=== PATIENT | male | born 1995 | race Caucasian/White ===

== ENCOUNTER 2019-07-01 23:02 | Emergency (ER) | payer BC ==
[~2019-07-01] VITALS: Ht 175.3 cm; Wt 59.0 kg
[2019-07-01 23:15] VITALS: BP 108/60
--- NOTE | 2019-07-01 23:18 | NUR ---
ED Nurse Note: PT AMBULATED TO ED C/O LEFT EYE ABCESS. PT PRESENTS WITH CLEAR DISCHARGE. ACCOMPANIED BY SIGNIFICANT OTHER. AO4. NAD. VSS. VISUAL ACUITY BILATERA; 20/70; LEFT EYE 20/100; RIGHT EYE 20/70
[2019-07-01] MEDS ORDERED: TOBRADEX EYE O3.5 G1 OP (23:20)
--- NOTE | 2019-07-01 23:21 | Emergency Room Report ---
History of Present Illness General Chief Complaint: Eye Problems Source: Patient Present Illness HPI 23-year-old male with no past medical history. He presents with chief complaint of eye redness. Onset for 4 to 5 days now. Started on the right eye with a stye. That drained. He has another one in the left eye. He is been trying homeopathic medication is not helping. More irritated and swollen now. No fever chills but no nausea no vomiting. Denies any other complaint. No visual loss. Allergies: Coded Allergies: No Known Allergies (Unverified , 07/01/19) Patient History Past Medical History: see triage record, old chart reviewed Past Surgical History: none Pertinent Family History: none Social History: Denies: smoking Immunizations: UTD Reviewed Nursing Documentation: PMH: Agreed; PSxH: Agreed Nursing Documentation-PMH Hx Cardiac Problems: Yes - murmur Hx Seizures: Yes - 2016 Review of Systems Eye: Denies: eye pain, blurred vision ENT: Denies: ear pain, nose congestion, throat swelling Respiratory: Denies: cough, shortness of breath Cardiovascular: Denies: chest pain, palpitations Gastrointestinal: Denies: abdominal pain, diarrhea, nausea, vomiting Musculoskeletal: Denies: back pain, joint pain Skin: Denies: rash Neurological: Denies: headache, numbness Endocrine: Denies: increased thirst, increased urine Hematologic/Lymphatic: Denies: easy bruising All Other Systems: negative except mentioned in HPI Physical Exam Vital Signs Date Time Temp Pulse Resp B/P (MAP) Pulse Ox O2 Delivery O2 Flow Rate FiO2 07/01/19 23:05 97.9 67 16 108/60 (76) 94 Room Air Vitals normal Sp02 EP Interpretation: reviewed, normal General Appearance: well appearing, no apparent distress, alert Head: normocephalic, atraumatic Eyes: right eye other - Lower lid medially with a small stye that this already drained. Left lower lid in the middle with edema and redness.; bilateral eye PERRL, bilateral eye EOMI ENT: hearing grossly normal, normal pharynx Neck: full range of motion, supple, no meningismus Respiratory: chest non-tender, lungs clear, normal breath sounds Cardiovascular #1: regular rate, rhythm, no murmur Gastrointestinal: normal bowel sounds, non tender, no mass, no organomegaly, no bruit, non-distended Musculoskeletal: back normal, gait/station normal, normal range of motion Psychiatric: mood/affect normal Medical Decision Making Diagnostic Impression: Primary Impression: Sty Qualified Codes: H00.015 - Hordeolum externum left lower eyelid ER Course Patient presented with a stye. No evidence of hanane-orbital cellulitis or orbital cellulitis. Will discharge home. Last Vital Signs Date Time Temp Pulse Resp B/P (MAP) Pulse Ox O2 Delivery O2 Flow Rate FiO2 07/01/19 23:05 97.9 67 16 108/60 (76) 94 Room Air Status: unchanged Disposition: HOME, SELF-CARE Condition: Stable Scripts Tobramycin/Dexamethasone (TOBRADEX EYE OINTMENT) 3.5 Gm Oint...g. 3.5 GM OP BID, #3.5 GM Prov: Rm Catalan MD 07/01/19 Additional Instructions: Clean eyelid with mild soap and water. Apply warm compress. Use antibiotic ointment afterward. Follow-up with your doctor in 7 days for recheck. You may need referral to see an eye doctor. Return if symptoms worsen. Rm Catalan MD Jul 01, 2019 23:21
[2019-07-01 23:25] VITALS: BP 108/60
--- NOTE | 2019-07-01 23:26 | NUR ---
ER DISCHARGE NOTE: Patient is cleared to be discharged per ERMD, pt is aox4, on room air, with stable vital signs. accompanied by significant other. pt was given dc and prescription instructions, pt was able to verbalize understanding, pt id band removed. pt is able to ambulate with steady gait. pt took all belongings.
== END 2019-07-01 23:25 | disposition home or self-care (01) ==
LOC: EMR 23:15
DX: H00.015 Hordeolum externum left lower eyelid (principal); R01.1 Cardiac murmur, unspecified
CPT/HCPCS: 99282

== ENCOUNTER 2019-08-18 11:14 | Emergency (ER) | payer BC ==
[~2019-08-18] VITALS: Ht 180.3 cm; Wt 58.5 kg
[~2019-08-18 11:14] MED LIST: TOBRADEX EYE O3.5 G1 OP
[2019-08-18] MEDS ORDERED: NKM (11:23)
[2019-08-18 11:24] VITALS: BP 110/65
--- NOTE | 2019-08-18 12:01 | Emergency Room Report ---
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 Denies trauma to the eye, blurry vision, photophobia, fever and chills, URI symptoms. Has not taken medication for symptoms. Periorbital cellulitis noted in the right eye and left eye has some reminiscent of previous stye Allergies: Coded Allergies: No Known Allergies (Unverified , 07/01/19) Patient History Past Medical History: see triage record Past Surgical History: unable to obtain Pertinent Family History: none Immunizations: UTD Reviewed Nursing Documentation: PMH: Agreed; PSxH: Agreed Nursing Documentation-PM Past Medical History: No History, Except For Hx Cardiac Problems: No - h/o seizure Hx Seizures: Yes - 2015 Review of Systems All Other Systems: negative except mentioned in HPI Physical Exam Vital Signs Date Time Temp Pulse Resp B/P (MAP) Pulse Ox O2 Delivery O2 Flow Rate FiO2 08/18/19 11:19 98.1 67 19 106/55 (72) 96 Room Air Sp02 EP Interpretation: reviewed, normal General Appearance: no apparent distress, alert, GCS 15, non-toxic Head: normocephalic, atraumatic Eyes: right eye other - periorbital cellulitis, chalazion, conjunctiva injected ; bilateral eye normal inspection, bilateral eye PERRL ENT: hearing grossly normal, normal pharynx, no angioedema, normal voice, TMs + canals normal Neck: full range of motion, supple, thyroid normal, no carotid bruits, supple/ symm/no masses Respiratory: chest non-tender, lungs clear, normal breath sounds, no rhonchi, no respiratory distress, no wheezing, speaking full sentences Cardiovascular #1: regular rate, rhythm, no edema, systolic murmur - due to VSD Gastrointestinal: normal bowel sounds, non tender, soft, non-distended, no guarding, no rebound Genitourinary: no CVA tenderness Musculoskeletal: back normal, normal range of motion, gait/station normal, non- tender Neurologic: alert, motor strength/tone normal, oriented x3, sensory intact, responsive, speech normal Psychiatric: normal inspection, judgement/insight normal Skin: no rash Lymphatic: no adenopathy Medical Decision Making PA Attestation All my diagnosis and treatment plans were reviewed ad discussed with my supervising physician Dr. Martinez Diagnostic Impression: Primary Impression: Periorbital cellulitis Additional Impression: Bacterial conjunctivitis ER Course 23-year-old male with history of VSD currently controlled by road passenger firer here complaining of 1 week of bilateral eye pruritus, and pain and now 2 days of right eye swelling periorbital with pain and yellow discharge. 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 Denies trauma to the eye, blurry vision, photophobia, fever and chills, URI symptoms. Has not taken medication for symptoms. Periorbital cellulitis noted in the right eye and left eye has some reminiscent of previous stye Ddx considered but are not limited to: bacterial conjunctivitis, allergic conjunctivitis, viral conjunctivitis, periorbital cellulitis, global trauma Vital signs: are WNL, pt. is afebrile H&PE are most consistent with: Right periorbital cellulitis, bacterial conjunctivitis ORDERS: Augmentin, ofloxacin ophthalmic ED INTERVENTIONS: None required at this time. DISCHARGE: At this time pt. is stable for d/c to home. Will provide printed patient care instructions, and any necessary prescriptions. Care plan and follow up instructions have been discussed with the patient prior to discharge. Patient to follow-up with her primary care provider and road passenger firer regarding VSD management also referral to graining machine operator may be needed if symptoms continue to be persistent. If worsening symptoms return to the emergency room Last Vital Signs Date Time Temp Pulse Resp B/P (MAP) Pulse Ox O2 Delivery O2 Flow Rate FiO2 08/18/19 11:24 98.1 85 17 110/65 98 Room Air Disposition: HOME, SELF-CARE Condition: Stable Scripts Ofloxacin (Ofloxacin) 5 Ml Drops 2 DROP OP Q4H for 7 Days, #5 ML Prov: Alisha Ruiz 08/18/19 Amoxicillin/Potassium Clav 875-125* (AUGMENTIN 875-125 TABLET*) 1 Each Tablet 1 TAB ORAL TWICE A DAY for 10 Days, #20 TAB Prov: Alisha Ruiz 11/24/19 Referrals: NOT CHOSEN IPA/,REFERRING (PCP) Patient Instructions: Bacterial Conjunctivitis, [id number], Preseptal Cellulitis, Adult Additional Instructions: Take medication as follows her primary care provider, also follow-up with your road passenger firer if worsening symptoms return to the emergency room Alisha Ruiz Aug 18, 2019 12:01
[2019-08-18] MEDS ORDERED: AUGMENTIN 875-1 EAC1 ORAL (12:02)
[2019-08-18] MEDS ORDERED: OFLOXACIN10 ML OP (12:02)
[2019-08-18 12:08] VITALS: BP 112/72
== END 2019-08-18 12:08 | disposition home or self-care (01) ==
LOC: EMR 11:52
DX: L03.213 Periorbital cellulitis (principal); H10.9 Unspecified conjunctivitis; G40.909 Epilepsy, unspecified, not intractable, without status epilepticus
CPT/HCPCS: 99282

== ENCOUNTER 2020-03-28 02:23 | Emergency (ER) | payer BC, MEDICAID ==
[~2020-03-28] VITALS: Ht 180.3 cm; Wt 59.0 kg
[~2020-03-28 02:23] MED LIST changes: +AUGMENTIN 875-1 EAC1 ORAL; +NKM; +OFLOXACIN10 ML OP
[2020-03-28 02:31] VITALS: BP 117/66
--- NOTE | 2020-03-28 02:31 | NUR ---
ED Nurse Note: Patient walked in to ED from home c/o laceration on left thumb x 1hr ago. Per pt, he was cleaning his gf's scissors and accidentally cut his thumb. Bleeding is controlled. VSS. SULLIVAN at bedside.
--- NOTE | 2020-03-28 03:00 | Emergency Room Report ---
History of Present Illness General Chief Complaint: Upper Extremity Injury Source: Patient Present Illness HPI Patient presents with a cut to his left thumb. He was sharpening his girlfriend scissors when his stomach came across the sharp edge of the scissors. She had a difficult time controlling the bleeding but with pressure seems to have stopped. He denies any numbness. His tetanus is more recent than 10 years. He rates the pain 4/10 and sharp. L handed Patient denies medical problems. 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 Moved from [place] 3 years ago Reviewed Nursing Documentation: PMH: Agreed; PSxH: Agreed Nursing Documentation-PMH Hx Cardiac Problems: No Hx Seizures: Yes - 2015 Review of Systems Constitutional: Denies: fever ENT: Denies: throat pain Respiratory: Denies: cough Musculoskeletal: Reports: see HPI Skin: Reports: see HPI Neurological: Reports: see HPI Hematologic/Lymphatic: Reports: see HPI Physical Exam Vital Signs Date Time Temp Pulse Resp B/P (MAP) Pulse Ox O2 Delivery O2 Flow Rate FiO2 03/28/20 02:26 97.9 59 19 117/66 (83) 98 Room Air Sp02 EP Interpretation: reviewed, normal General Appearance: well appearing, no apparent distress, GCS 15 Head: normocephalic Eyes: bilateral eye normal inspection, bilateral eye PERRL ENT: moist mucus membranes Cardiovascular #1: regular rate, rhythm Gastrointestinal: normal inspection Musculoskeletal: gait/station normal Neurologic: alert, distal neuro normal, grossly normal Psychiatric: mood/affect normal Skin: other - Superficial laceration tip of left thumb Procedures Laceration/Wound Repair Laceration/Wound Repair : Consent: Verbal Wound Location: upper extremity Wound's Depth, Shape: superficial, linear Wound Length (cm): 1 Wound Explored: clean Irrigated w/ Saline (ccs): 20 Betadine Prep?: Yes Wound Debrided: None Wound Repaired With: Dermabond Sterile Dressing Applied?: Yes Patient Tolerated: Well Complications: None Medical Decision Making Diagnostic Impression: Primary Impression: Laceration of left thumb Qualified Codes: S61.012A - Laceration without foreign body of left thumb without damage to nail, initial encounter ER Course Patient presents with a superficial laceration to the tip of his left thumb. To control bleeding and to assist in laceration repair either sutures or Dermabond are indicated. Patient's vaccinations are up-to-date. After discussion we elected to use Dermabond. Please see procedure note. Patient tolerated laceration repair well. Treatment plan was discussed with the patient. Stable for outpatient observation and treatment. Last Vital Signs Date Time Temp Pulse Resp B/P (MAP) Pulse Ox O2 Delivery O2 Flow Rate FiO2 03/28/20 03:05 97.9 59 19 117/66 98 Room Air Status: improved Disposition: HOME, SELF-CARE Condition: Improved Ludwin Agrawal MD Mar 28, 2020 03:00
[2020-03-28 03:05] VITALS: BP 117/66
--- NOTE | 2020-03-28 03:05 | NUR ---
ED Nurse Note: Pt cleared by ERMD for discharge. DC instructions was given and explained to pt and verbalized understanding of teachings. All medical deviecs such as ID band removed. Pt is AAO x4, ambulatory and left with all personal belongings.
== END 2020-03-28 03:05 | disposition home or self-care (01) ==
LOC: EMR 02:40
DX: S61.012A Laceration without foreign body of left thumb without damage to nail, initial encounter (principal); W26.9XXA Contact with unspecified sharp object(s), initial encounter; Y92.9 Unspecified place or not applicable; F17.200 Nicotine dependence, unspecified, uncomplicated; G40.909 Epilepsy, unspecified, not intractable, without status epilepticus
CPT/HCPCS: 12001; Z7502; 99281; 99283